=== PATIENT | female | born 1970 | race African-American/Black ===

== ENCOUNTER 2018-03-08 00:17 | Emergency (ER) | payer MEDICARE, OTHER ==
[~2018-03-08] VITALS: Ht 170.2 cm; Wt 98.0 kg
[2018-03-08] MEDS ORDERED: HYDROCODONE/ACETAMINOPHEN 5/325MG TABLET PO ONE (01:45)
[2018-03-08] MEDS ORDERED: HYDROCODONE/ACETAMINOPHEN 10/325MG TABLET PO ONE (02:15)
[2018-03-08 06:37] VITALS: BP 124/89
== END 2018-03-08 06:37 | disposition home or self-care (01) ==
LOC: ER 00:17
DX: S50.11XA Contusion of right forearm, initial encounter (principal); Y04.2XXA Assault by strike against or bumped into by another person, initial encounter; Y07.499 Other family member, perpetrator of maltreatment and neglect; Y93.89 Activity, other specified; Y92.89 Other specified places as the place of occurrence of the external cause
CPT/HCPCS: 73090; 81025; 99284

== ENCOUNTER 2018-03-10 00:38 | Emergency (ER) | payer MEDICARE, OTHER ==
[~2018-03-10] VITALS: Ht 167.6 cm; Wt 82.0 kg
[2018-03-10] MEDS ORDERED: LIDOCAINE HCL/PF 1% 10 MG/ML 5ML VIAL IJ ONE (02:00)
[2018-03-10] MEDS ORDERED: TETANUS, DIPHTHERIA, PERTUSSIS VAC/PF 0.5ML (>7YR OLD) IM ONE (02:00)
[2018-03-10] MEDS ORDERED: HYDROCODONE/ACETAMINOPHEN 5/325MG TABLET PO ONE (02:00)
[2018-03-10] MEDS ORDERED: BACITRACIN ZINC OINT UDPKT TOP ONE (02:00)
[2018-03-10 03:05] VITALS: BP_SYST 120
[2018-03-10 05:15] VITALS: BP_DIAS 65
== END 2018-03-10 18:24 | disposition home or self-care (01) ==
LOC: ER 18:07
DX: S51.811A Laceration without foreign body of right forearm, initial encounter (principal); G62.9 Polyneuropathy, unspecified; W25.XXXA Contact with sharp glass, initial encounter; Y93.89 Activity, other specified; Y92.018 Other place in single-family (private) house as the place of occurrence of the external cause
CPT/HCPCS: 12002; 73090; 73130; 90471; 90715; 99284; J3490

== ENCOUNTER 2018-04-10 18:43 | Emergency (ER) | payer MEDICARE, OTHER ==
[~2018-04-10] VITALS: Ht 170.2 cm; Wt 95.0 kg
[2018-04-10 23:53] VITALS: BP 125/85
== END 2018-04-10 23:54 | disposition home or self-care (01) ==
LOC: ER 22:36
DX: G89.29 Other chronic pain (principal); M54.5 Low back pain; L73.2 Hidradenitis suppurativa; M25.562 Pain in left knee; M25.561 Pain in right knee; M19.90 Unspecified osteoarthritis, unspecified site; F31.9 Bipolar disorder, unspecified; F17.200 Nicotine dependence, unspecified, uncomplicated
CPT/HCPCS: 99283

== ENCOUNTER 2019-01-28 21:27 | Emergency (ER) | payer MEDICARE, MEDICAID ==
[~2019-01-28] VITALS: Ht 170.2 cm; Wt 82.0 kg
[2019-01-29 00:12] LABS: BASOPHILS % 0.3 % (0.0-2.0); EOSINOPHILS % 1.1 % (0.0-5.0); HEMATOCRIT. 46.6 % (36.0-48.0); HEMOGLOBIN. 15.4 g/dL (12.0-16.0); LYMPHOCYTES % 37.9 % (20.0-50.0); MEAN CORPUSCULAR HEMOGLOBIN 29.8 pg (28.0-32.0); MEAN CORPUSCULAR VOLUME 90.2 fL (81.0-99.0); MEAN PLATELET VOLUME 8.5 fl (7.4-10.4); NEUTROPHILS % 51.7 % (40.0-76.0); PLATELET 202 x1000/uL (130-400); RED BLOOD CELL COUNT 5.17 mill/uL (4.2-5.4); RED CELL DISTRIBUTION WIDTH 14.4 % (11.6-14.6)
[2019-01-29 00:36] LABS: INR 1.1; PARTIAL THROMBOPLASTIN TIME 25.1 sec (23.4-31.0); PROTHROMBIN TIME 11.7 sec (9.6-11.0)
[2019-01-29 01:06] LABS: CLARITY URINE CLEAR (CLEAR); COLOR URINE DARK YELLOW (YELLOW); KETONES URINE TRACE (NEGATIVE); LEUKOCYTE ESTERASE URINE NEGATIVE (NEGATIVE); NITRITE URINE NEGATIVE (NEGATIVE); OCCULT BLOOD URINE NEGATIVE (NEGATIVE); PROTEIN URINE TRACE (NEGATIVE); SPECIFIC GRAVITY URINE 1.025 (1.005-1.030); UROBILINOGEN URINE 0.2 E.U./dL (0.2-1.0)
[2019-01-29 01:13] LABS: CHLORIDE 118 mEq/L (98-107)
[2019-01-29] MEDS ORDERED: SODIUM CHLORIDE 0.9% 1,000 ML IV ONE (02:38)
[2019-01-29] MEDS ORDERED: KETOROLAC 30MG/ML VIAL IV STA (02:38)
[2019-01-29] MEDS ORDERED: IOHEXOL-300 100 ML BOTTLE ONE (02:46)
[2019-01-29 03:45] VITALS: BP 128/85
== END 2019-01-29 04:07 | disposition home or self-care (01) ==
LOC: ER 21:27
DX: R10.31 Right lower quadrant pain (principal); R11.2 Nausea with vomiting, unspecified; R19.7 Diarrhea, unspecified; F31.9 Bipolar disorder, unspecified; F20.9 Schizophrenia, unspecified; F17.200 Nicotine dependence, unspecified, uncomplicated; F11.10 Opioid abuse, uncomplicated
CPT/HCPCS: 36415; 71045; 74177; 80053; 81003; 82270; 83690; 85025; 85610; 85730; 93005; 96374; 99284; J1885; J7030; Q9967

== ENCOUNTER 2024-08-26 22:33 | Emergency (ER) | payer MEDICARE, MEDICAID ==
[~2024-08-26] VITALS: Ht 170.2 cm; Wt 100.0 kg
[~2024-08-26 22:33] MED LIST: CYCL10TA21 PO; GABA-290 PO; LORA2ORA5 PO; ONDA4TAB5 PO; QUET300T2 PO; TOPUD PO
[2024-08-26 22:35] VITALS: O2SAT 95
[2024-08-26 22:55] VITALS: TEMP 36.7; O2SAT 99
[2024-08-27 00:42] VITALS: BP 155/84; PULSE 92; RESP 18
[2024-08-27] MEDS: IBUPROFEN 600MG TABLET PO ONE (00:42)
[2024-08-27] MEDS ORDERED: IBUP-2029 MT (01:32)
== END 2024-08-27 02:25 | disposition home or self-care (01) ==
LOC: ER 22:33
DX: S92.352A Displaced fracture of fifth metatarsal bone, left foot, initial encounter for closed fracture (principal); F20.9 Schizophrenia, unspecified; I10 Essential (primary) hypertension; M19.90 Unspecified osteoarthritis, unspecified site; F10.90 Alcohol use, unspecified, uncomplicated; F11.90 Opioid use, unspecified, uncomplicated; Z79.899 Other long term (current) drug therapy; W22.8XXA Striking against or struck by other objects, initial encounter; Y93.89 Activity, other specified; Y92.89 Other specified places as the place of occurrence of the external cause; Y99.8 Other external cause status; Y90.9 Presence of alcohol in blood, level not specified
CPT/HCPCS: 29515; 73630; 99283